=== PATIENT | female | born 1995 | race Two or more races ===

== ENCOUNTER 2024-03-30 11:47 | Emergency (ER) | payer OTHER ==
[~2024-03-30] VITALS: Ht 170.2 cm; Wt 81.6 kg
[2024-03-30 13:39] LABS: HEMATOCRIT 31.3 % (36.0-45.00); MEAN CELL VOLUME 88.4 fL (80.00-100.00); MEAN CORPUSCULAR HEMOGLOBIN 31.2 pg (27.00-32.0); MEAN CORPUSCULAR HGB CONC 35.3 g/dl (32.0-36.0); PLATELET COUNT 270 K/uL (150-450); RED BLOOD COUNT 3.54 M/uL (4.00-6.00); RED CELL DISTRIBUTION WIDTH 12.4 % (11.5-14.5)
[2024-03-30 14:31] LABS: URINE APPEARANCE Clear; URINE BILIRRUBIN Negative (NEGATIVE); URINE BLOOD Negative; URINE COLOR Yellow; URINE GLUCOSE Negative (NEGATIVE); URINE KETONE Negative (NEGATIVE); URINE LEUKOCYTE Negative; URINE NITRATE Negative; URINE PROTEIN Negative (NEGATIVE); URINE UROBILINOGEN 0.2 E.U./dl
[2024-03-30 14:33] LABS: URINE BACTERIA 249.4 uL (0.0-1933); URINE WBC 4.6 uL (0.0-23.2)
[2024-03-30 14:40] LABS: URINE RBC 0.3 uL (0.0-20.8)
== END 2024-03-30 16:24 | disposition home or self-care (01) ==
LOC: ER 11:48
PROVIDERS: Emergency Medicine
DX: O20.9 Hemorrhage in early pregnancy, unspecified (principal); Z3A.01 Less than 8 weeks gestation of pregnancy

== ENCOUNTER 2024-07-14 21:09 | Inpatient (IN) | payer OTHER ==
[~2024-07-14] VITALS: Ht 170.2 cm; Wt 87.1 kg
[2024-07-14 20:11] VITALS: BP 131/70
[2024-07-14] MEDS ORDERED: PRENATAL TABLE1 EAC1 PO (21:11)
[2024-07-14] MEDS ORDERED: ADULT LOW DOSE81 M1 PO (21:11)
[2024-07-14] MEDS ORDERED: RINGERS SOLUTION,LACTATED 1,000 ML IV SCH (21:15)
[2024-07-14] MEDS ORDERED: PROMETHAZINE HCL 50 MG/ML AMPUL IM ONE (23:00)
[2024-07-14 23:10] LABS: HEMATOCRIT 29.9 % (36.0-45.00); MEAN CELL VOLUME 93.8 fL (80.00-100.00); MEAN CORPUSCULAR HEMOGLOBIN 32.3 pg (27.00-32.0); MEAN CORPUSCULAR HGB CONC 34.4 g/dl (32.0-36.0); PLATELET COUNT 237 K/uL (150-450); RED BLOOD COUNT 3.18 M/uL (4.00-6.00); RED CELL DISTRIBUTION WIDTH 12.1 % (11.5-14.5)
[2024-07-14 23:27] LABS: HEMOGLOBIN 10.3 g/dL (12.0-15.00)
[2024-07-14 23:36] LABS: INR < 0.93; PARTIAL THROMBOPLASTIN TIME 26.7 SECONDS (22.0-34.0); PROTHROMBIN TIME 9.8 SECONDS (9.0-11.5)
[2024-07-14 23:41] LABS: BILIRUBIN TOTAL 0.22 mg/dL (0.3-1.2); CALCIUM 8.7 mg/dL (8.5-10.1); CREATININE SERUM 0.72 mg/dL (0.55-1.02); GFR 96.45; GLOBULINA 3.6 G/DL (2.4-3.5); POTASSIUM 4.32 mEq/L (3.5-5.1); TOTAL PROTEIN 6.6 gm/dL (6.4-8.2)
[2024-07-14 23:54] VITALS: BP 129/67
[2024-07-15] VITALS (7 sets, daily range): BP systolic 105–126; BP diastolic 51–81
[2024-07-15] MEDS ORDERED: MORPHINE SULFATE 4 MG/ML CARTRIDGE IV ONE (03:15)
[2024-07-15 04:04] LABS: URINE APPEARANCE Clear; URINE BILIRRUBIN Negative (NEGATIVE); URINE BLOOD Large; URINE COLOR Yellow; URINE GLUCOSE Negative (NEGATIVE); URINE KETONE 15 (NEGATIVE); URINE LEUKOCYTE Negative; URINE NITRATE Negative; URINE PROTEIN Trace (NEGATIVE); URINE UROBILINOGEN 0.2 E.U./dl
[2024-07-15 04:07] LABS: URINE BACTERIA 146.1 uL (0.0-1933); URINE EPITHELIAL CELLS 9.7 uL (0.0-38.8); URINE RBC 34.3 uL (0.0-20.8); URINE WBC 5.1 uL (0.0-23.2)
[2024-07-15 04:19] LABS: URINE CAST 0.45 uL (0.0-1.40)
[2024-07-15] MEDS ORDERED: AMPICILLIN SODIUM 2,000 MG VIAL IV ONE (14:45)
[2024-07-15] MEDS ORDERED: AZITHROMYCIN 500 MG TABLET PO ONE (16:00)
[2024-07-15] MEDS ORDERED: AMPICILLIN SODIUM 1,000 MG VIAL IV SCH ×2 (17:00→20:00)
[2024-07-15] MEDS ORDERED: OXYTOCIN 500 ML IV SCH (19:30)
[2024-07-15 21:13] LABS: RH POSITIVE
[2024-07-15] MEDS ORDERED: MORPHINE SULFATE 4 MG/ML VIAL IV STA (22:43)
[2024-07-16] VITALS (9 sets, daily range): BP systolic 97–136; BP diastolic 50–81
[2024-07-16] MEDS ORDERED: OXYTOCIN 10 UNITS/ML VIAL IM STA (01:21)
[2024-07-16] MEDS ORDERED: CHLORHEXIDINE GLUCONATE 120 ML BOTTLE TP SCH (01:30)
[2024-07-16] MEDS ORDERED: IBUprofen 400 MG TABLET PO PRN (01:30)
[2024-07-16 07:40] LABS: HEMATOCRIT 25.6 % (36.0-45.00); HEMOGLOBIN 9.1 g/dL (12.0-15.00); MEAN CELL VOLUME 92.7 fL (80.00-100.00); MEAN CORPUSCULAR HEMOGLOBIN 32.9 pg (27.00-32.0); MEAN CORPUSCULAR HGB CONC 35.5 g/dl (32.0-36.0); PLATELET COUNT 207 K/uL (150-450); RED BLOOD COUNT 2.77 M/uL (4.00-6.00); RED CELL DISTRIBUTION WIDTH 11.9 % (11.5-14.5)
[2024-07-16] MEDS ORDERED: AMPICILLIN SODIUM 1,000 MG VIAL IV SCH (09:00)
== END 2024-07-16 14:02 | disposition home or self-care (01) | DRG 805 ==
LOC: OBS/DEL 21:09 → LDR 07-15 12:44
PROVIDERS: ADMIT Obstetrics & Gynecology; ATTEND Obstetrics & Gynecology
PROC: BY4CZZZ Ultrasonography of Second Trimester, Single Fetus (ICD-10-PCS; 2024-07-15)
PROC: 4A1HXCZ Monitoring of Products of Conception, Cardiac Rate, External Approach (ICD-10-PCS; 2024-07-15)
PROC: 10E0XZZ Delivery of Products of Conception, External Approach (ICD-10-PCS; principal; 2024-07-16)
DX: O36.4XX0 Maternal care for intrauterine death, not applicable or unspecified (principal); O34.32 Maternal care for cervical incompetence, second trimester; Z37.1 Single stillbirth; O41.1220 Chorioamnionitis, second trimester, not applicable or unspecified; O41.1420 Placentitis, second trimester, not applicable or unspecified; O46.8X2 Other antepartum hemorrhage, second trimester; Z3A.22 22 weeks gestation of pregnancy; Z20.822 Contact with and (suspected) exposure to COVID-19

== ENCOUNTER 2025-01-20 08:35 | Outpatient (CLI) | payer OTHER ==
[~2025-01-20 08:35] MED LIST: ADULT LOW DOSE81 M1 PO; PRENATAL TABLE1 EAC1 PO
== END 2025-01-20 08:36 | disposition home or self-care (01) ==
LOC: PRENATAL 08:35
PROVIDERS: ATTEND Obstetrics & Gynecology Maternal & Fetal Medicine
DX: O36.80X0 Pregnancy with inconclusive fetal viability, not applicable or unspecified (principal); O26.859 Spotting complicating pregnancy, unspecified trimester; O34.30 Maternal care for cervical incompetence, unspecified trimester

== ENCOUNTER → 2025-02-09 09:26 | Outpatient (CLI) | payer OTHER | END | disposition home or self-care (01) | LOC: PRENATAL 09:26 | PROVIDERS: ATTEND Obstetrics & Gynecology Maternal & Fetal Medicine | DX: O36.80X0 Pregnancy with inconclusive fetal viability, not applicable or unspecified (principal); O34.30 Maternal care for cervical incompetence, unspecified trimester; Z14.8 Genetic carrier of other disease; Z3A.12 12 weeks gestation of pregnancy ==

== ENCOUNTER → 2025-03-12 10:06 | Outpatient (CLI) | payer OTHER ==
[~2025-03-12 10:06] MED LIST changes: +AZITHROMYCIN500 MG PO
== END | disposition home or self-care (01) ==
LOC: PRENATAL 10:06
PROVIDERS: ATTEND Obstetrics & Gynecology Maternal & Fetal Medicine
DX: O26.849 Uterine size-date discrepancy, unspecified trimester (principal); O34.30 Maternal care for cervical incompetence, unspecified trimester; Z3A.17 17 weeks gestation of pregnancy

== ENCOUNTER 2025-03-22 10:49 | Outpatient (CLI) | payer OTHER | END 2025-03-22 10:52 | disposition home or self-care (01) | LOC: LAB 10:49 | PROVIDERS: ATTEND Obstetrics & Gynecology Maternal & Fetal Medicine | DX: O26.879 Cervical shortening, unspecified trimester (principal); O09.219 Supervision of pregnancy with history of pre-term labor, unspecified trimester ==

== ENCOUNTER → 2025-04-05 12:28 | Outpatient (CLI) | payer OTHER | END | disposition home or self-care (01) | LOC: PRENATAL 12:28 | PROVIDERS: ATTEND Obstetrics & Gynecology Maternal & Fetal Medicine | DX: O44.00 Complete placenta previa NOS or without hemorrhage, unspecified trimester (principal); O34.30 Maternal care for cervical incompetence, unspecified trimester; Z3A.20 20 weeks gestation of pregnancy ==

== ENCOUNTER 2025-06-23 09:00 | Outpatient (CLI) | payer OTHER | END 2025-06-23 09:01 | disposition home or self-care (01) | LOC: PRENATAL 09:00 | PROVIDERS: ATTEND Obstetrics & Gynecology Maternal & Fetal Medicine | DX: O26.843 Uterine size-date discrepancy, third trimester (principal); O36.8130 Decreased fetal movements, third trimester, not applicable or unspecified; O34.33 Maternal care for cervical incompetence, third trimester; O36.5930 Maternal care for other known or suspected poor fetal growth, third trimester, not applicable or unspecified; O32.9XX0 Maternal care for malpresentation of fetus, unspecified, not applicable or unspecified; Z3A.30 30 weeks gestation of pregnancy ==

== ENCOUNTER 2025-07-13 10:07 | Outpatient (CLI) | payer OTHER | END 2025-07-13 10:08 | disposition home or self-care (01) | LOC: PRENATAL 10:07 | PROVIDERS: ATTEND Obstetrics & Gynecology Maternal & Fetal Medicine | DX: O26.843 Uterine size-date discrepancy, third trimester (principal); O36.8130 Decreased fetal movements, third trimester, not applicable or unspecified; O34.33 Maternal care for cervical incompetence, third trimester; O32.9XX0 Maternal care for malpresentation of fetus, unspecified, not applicable or unspecified; O36.5930 Maternal care for other known or suspected poor fetal growth, third trimester, not applicable or unspecified; Z3A.33 33 weeks gestation of pregnancy ==

== ENCOUNTER → 2025-07-29 08:07 | Outpatient (CLI) | payer OTHER | END | disposition home or self-care (01) | LOC: PRENATAL 08:07 | PROVIDERS: ATTEND Obstetrics & Gynecology Maternal & Fetal Medicine | DX: O26.843 Uterine size-date discrepancy, third trimester (principal); O36.8130 Decreased fetal movements, third trimester, not applicable or unspecified; O34.33 Maternal care for cervical incompetence, third trimester; O36.5930 Maternal care for other known or suspected poor fetal growth, third trimester, not applicable or unspecified; O32.9XX0 Maternal care for malpresentation of fetus, unspecified, not applicable or unspecified; Z3A.33 33 weeks gestation of pregnancy ==

== ENCOUNTER 2025-08-12 05:14 | Inpatient (IN) | payer OTHER ==
[~2025-08-12] VITALS: Ht 170.2 cm; Wt 104.3 kg
[2025-08-12 04:47] VITALS: BP 136/83
[~2025-08-12 05:14] MED LIST changes: +PRENATA CHEWAB1 EACH PO
[2025-08-12] MEDS ORDERED: RINGERS SOLUTION,LACTATED 1,000 ML IV SCH ×2 (05:30→11:30)
[2025-08-12] MEDS ORDERED: CEFAZOLIN SODIUM 1,000 MG VIAL IV SCH (05:30)
[2025-08-12 06:03] LABS: BASO % 0.3 % (0.1-1.2); EOS # 0.17 (0.04-0.54); EOS % 1.5 % (0.7-7.0); LYMPH # 1.42 (1.18-3.74); LYMPH % 12.5 % (19.3-53.1); MEAN PLATELET VOLUME 11.00 fl (9.4-12.4); MONO # 0.87 (0.24-0.82); MONO % 7.6 % (4.7-12.5); NEUT # 8.83 (1.56-6.13); NEUT % 77.4 % (34.0-71.1); RED CELL DISTRIBUTION WIDTH 12.4 % (11.6-14.4)
[2025-08-12 06:08] LABS: URINE APPEARANCE Clear; URINE BILIRRUBIN Negative (NEGATIVE); URINE BLOOD Negative; URINE COLOR Yellow; URINE GLUCOSE Negative (NEGATIVE); URINE KETONE 15 (NEGATIVE); URINE LEUKOCYTE Negative; URINE NITRATE Negative; URINE PROTEIN Trace (NEGATIVE); URINE UROBILINOGEN 1.0 E.U./dl
[2025-08-12 06:09] LABS: URINE BACTERIA 1748.0 uL (0.0-1933); URINE EPITHELIAL CELLS 34.0 uL (0.0-38.8); URINE RBC 3.8 uL (0.0-20.8); URINE WBC 40.7 uL (0.0-23.2)
[2025-08-12 06:21] LABS: INR < 0.93
[2025-08-12 06:24] LABS: ALT/SGPT 39.0 U/L (12-78); AST/SGOT 24.0 U/L (15-37); BILIRUBIN TOTAL 0.26 mg/dL (0.3-1.2); BUN CREA RATIO 20.0 (7.0-25.0); CREATININE SERUM 0.7 mg/dL (0.55-1.02); GFR 98.25; GLOBULINA 3.9 G/DL (2.4-3.5); GLUCOSE FASTING 112.0 mg/dL (65-100); OSMOLALITY SERUM 279.0 MOSM/KG (275-295)
[2025-08-12 06:56] LABS: URINE CAST 0.84 uL (0.0-1.40)
[2025-08-12] MEDS ORDERED: TERBUTALINE SULFATE 1 MG/ML AMPUL ONE (07:25)
[2025-08-12 07:38] VITALS: BP 131/71
[2025-08-12] MEDS ORDERED: TERBUTALINE SULFATE 1 MG/ML AMPUL SUBCUTANEO ONE (08:00)
[2025-08-12] MEDS ORDERED: ERYTHROMYCIN BASE OPHT 1GM EACH TUBE OP ONE (09:04)
[2025-08-12] MEDS ORDERED: OXYTOCIN 10 UNITS/ML VIAL ONE (09:04)
[2025-08-12] MEDS ORDERED: KETOROLAC TROMETHAMINE 60 MG VIAL IM STA (11:19)
[2025-08-12 11:58] LABS: BASO % 0.1 % (0.1-1.2); EOS # 0.01 (0.04-0.54); EOS % 0.1 % (0.7-7.0); LYMPH # 0.95 (1.18-3.74); LYMPH % 6.1 % (19.3-53.1); MEAN PLATELET VOLUME 10.90 fl (9.4-12.4); MONO # 0.80 (0.24-0.82); MONO % 5.1 % (4.7-12.5); NEUT # 13.82 (1.56-6.13); NEUT % 88.0 % (34.0-71.1); RED CELL DISTRIBUTION WIDTH 12.3 % (11.6-14.4)
[2025-08-12 12:28] LABS: RH POSITIVE
[2025-08-12] MEDS ORDERED: KETOROLAC TROMETHAMINE 60 MG VIAL IM ONE ×2 (12:40→12:45)
[2025-08-12] MEDS ORDERED: MORPHINE SULFATE 4 MG/ML VIAL IV SCH (13:00)
[2025-08-12 13:30] VITALS: BP 134/84
[2025-08-12 17:11] VITALS: BP 133/66
[2025-08-13 00:10] VITALS: BP 128/90
[2025-08-13] MEDS ORDERED: OxyCODONE HCL 5 MG TABLET (ROXICODONE) PO PRN (09:00)
[2025-08-13] MEDS ORDERED: ACETAMINOPHEN 325 MG TABLET PO PRN (09:00)
[2025-08-13 09:02] VITALS: BP 129/72
[2025-08-13 16:25] VITALS: BP 131/83
[2025-08-14] VITALS: BP 122/75
[2025-08-14 09:47] VITALS: BP 126/87
== END 2025-08-14 15:16 | DRG 786 ==
LOC: OB/GYN 05:14 → LDR 05:14 → OB/GYN 11:35
PROVIDERS: Obstetrics & Gynecology; ADMIT Obstetrics & Gynecology; ATTEND Obstetrics & Gynecology
PROC: 0UCC7ZZ Extirpation of Matter from Cervix, Via Natural or Artificial Opening (ICD-10-PCS; 2025-08-12)
PROC: 4A1HXCZ Monitoring of Products of Conception, Cardiac Rate, External Approach (ICD-10-PCS; 2025-08-12)
PROC: 10D00Z1 Extraction of Products of Conception, Low, Open Approach (ICD-10-PCS; principal; 2025-08-12 09:00)
DX: O32.1XX0 Maternal care for breech presentation, not applicable or unspecified (principal); O34.33 Maternal care for cervical incompetence, third trimester; Z3A.38 38 weeks gestation of pregnancy; Z37.0 Single live birth